=== PATIENT | female | born 1970 | race Caucasian/White ===

== ENCOUNTER 2018-07-01 20:06 | Emergency (ER) | payer SELFPAY ==
[2018-07-01 20:21] VITALS: TEMP 98; BMI 28.3
--- NOTE | 2018-07-01 20:21 | PDOC ---
Rapid Medical Evaluation Time Seen by Provider: 07/01/18 20:17 Medical Evaluation: Allergies Allergy/AdvReac Type Severity Reaction Status Date / Time amoxicillin Allergy Verified 11/10/15 18:06 ibuprofen AdvReac Verified 11/10/15 18:06 Iodinated Contrast- Oral and AdvReac Verified 11/10/15 18:07 IV Dye Penicillins AdvReac Verified 11/10/15 18:06 07/01/18 20:17 I have performed a brief in-person evaluation of this patient. The patient presents with a chief complaint of: chest discomfort radiating to L arm, denies SOB or pleuritic pain, "feels like i have a problem with my circulation", reports "problem with my vein in the past", reporst left leg swelling 2 weeks ago and was scheduled for US for r/o DVT. denies OCP use, recent surgeries/travel, last surgery cholecystectomy "years ago" Pertinent physical exam findings: tachy I have ordered the following: labs, urine, ekg, US The patient will proceed to the ED for further evaluation.
--- NOTE | 2018-07-01 21:16 | PDOC ---
History of Present Illness - General History Source: Patient Exam Limitations: No Limitations - History of Present Illness Initial Comments: 07/01/18 21:45 47 yo female no sig pmh presents to the ED for CP. Of note, pt admits to 2 weeks of immobility after having left calf injury with associated swelling and tenderness in the left leg. CP started this am, sudden onset, worse on exertion , described as pressure without radiation into her back, no diaphoresis or atypical s/s of CO. Denies F/C/N/V, abdominal pain, SOB. <Isma Cantu - Last Filed: 07/01/18 22:09> <Amanda Swanson - Last Filed: 07/02/18 01:23> - General Chief Complaint: Chest Pain Stated Complaint: PAIN Time Seen by Provider: 07/01/18 20:17 Past History - Past Medical History COPD: No - Surgical History Abdominal Surgery: Yes Cholecystectomy: Yes - Suicide/Smoking/Psychosocial Hx Smoking History: Unknown if ever smoked Have you smoked in the past 12 months: No Information on smoking cessation initiated: No Hx Alcohol Use: No Drug/Substance Use Hx: No Substance Use Type: None <Isma Cantu - Last Filed: 07/01/18 22:09> <Amanda Swanson - Last Filed: 07/02/18 01:23> - Past Medical History Allergies/Adverse Reactions: Allergies Allergy/AdvReac Type Severity Reaction Status Date / Time amoxicillin Allergy Verified 07/01/18 20:21 ibuprofen AdvReac Verified 07/01/18 20:21 Iodinated Contrast- Oral and AdvReac Verified 07/01/18 20:21 IV Dye Penicillins AdvReac Verified 07/01/18 20:21 Home Medications: Ambulatory Orders NK [No Known Home Medication] 11/10/15 *Physical Exam - Vital Signs Last Vital Signs Temp Pulse Resp BP Pulse Ox 98.0 F 117 H 16 162/100 98 07/01/18 20:19 07/01/18 20:19 07/01/18 20:19 07/01/18 20:19 07/01/18 20:19 <Isma Cantu - Last Filed: 07/01/18 22:09> - Vital Signs Last Vital Signs Temp Pulse Resp BP Pulse Ox 98.0 F 117 H 16 162/100 98 07/01/18 20:19 07/01/18 20:19 07/01/18 20:19 07/01/18 20:19 07/01/18 20:19 <Amanda Swanson - Last Filed: 07/02/18 01:23> ED Treatment Course - LABORATORY CBC & Chemistry Diagram: 07/01/18 21:00 07/01/18 21:00 <Isma Cantu - Last Filed: 07/01/18 22:09> - LABORATORY CBC & Chemistry Diagram: 07/01/18 21:00 07/01/18 21:00 - ADDITIONAL ORDERS Additional order review: Laboratory Results 07/02/18 07/01/18 07/01/18 00:20 21:05 21:00 PT with INR INR D-Dimer 220 Sodium Potassium Chloride Carbon Dioxide Anion Gap BUN Creatinine Est GFR (CKD-EPI)AfAm Est GFR (CKD-EPI)NonAf Random Glucose Calcium Magnesium Total Bilirubin AST ALT Alkaline Phosphatase Creatine Kinase Troponin I < 0.02 Total Protein Albumin TSH Serum , Qual Negative 07/01/18 07/01/18 21:00 21:00 PT with INR 12.30 INR 1.04 D-Dimer Sodium 138 Potassium 3.8 Chloride 106 Carbon Dioxide 23 Anion Gap 10 BUN 10 Creatinine 0.6 Est GFR (CKD-EPI)AfAm 127.58 Est GFR (CKD-EPI)NonAf 110.08 Random Glucose 93 Calcium 9.5 Magnesium 2.5 H Total Bilirubin 0.3 AST 15 ALT 28 Alkaline Phosphatase 80 Creatine Kinase 83 Troponin I < 0.02 Total Protein 8.3 H Albumin 4.0 TSH 1.52 Serum , Qual 07/01/18 21:00 RBC 4.82 MCV 86.7 MCHC 32.7 RDW 13.6 MPV 9.5 Neutrophils % 69.5 D Lymphocytes % 20.4 D Monocytes % 8.2 Eosinophils % 1.4 Basophils % 0.5 - Medications Given in the ED: ED Medications Discontinued Medications Generic Name Dose Route Start Last Admin Trade Name Freq PRN Reason Stop Dose Admin Acetaminophen 325 mg 07/01/18 22:34 07/01/18 22:45 Tylenol - PO 07/01/18 22:35 325 mg ONCE ONE Administration Sodium Chloride 1,000 ml 07/01/18 21:28 07/01/18 21:36 Normal Saline - IV 07/01/18 21:29 1,000 ml ONCE ONE Administration <KikiAmanda - Last Filed: 07/02/18 01:23> Medical Decision Making - Medical Decision Making 07/02/18 00:30 D-dimer neg Sono for DVT neg first trop neg Pending trop 2 S/O to night team for further care <Isma Cantu - Last Filed: 07/01/18 22:09> *DC/Admit/Observation/Transfer <Isma Cantu - Last Filed: 07/01/18 22:09> - Discharge Dispostion Decision to Admit order: No <Amanda Swanson - Last Filed: 07/02/18 01:23> Diagnosis at time of Disposition: Chest pain Qualifiers: Chest pain type: unspecified Qualified Code(s): R07.9 - Chest pain, unspecified - Discharge Dispostion Disposition: HOME Condition at time of disposition: Stable - Referrals Referrals: Tyshawn Short MD [Staff Physician] - Ricardo Jones MD [Staff Physician] - Rob Hutchins MD [Staff Physician] - - Patient Instructions Printed Discharge Instructions: DI for Chest Pain Additional Instructions: You were seen in the Emergency Department and found to have unremarkable labs, your test for blood clot in your lung was negative. Review the handout provided at discharge. Follow up with the referral given (Cardiology) and your primary care provider within a week. Return to the Emergency Department if you develop fevers/chills, trouble breathing, worsening symptoms, or any new/concerning symptoms. Print Language: [place]
[2018-07-01 21:21] LABS: BASO % 0.5 % (0-2.0); EOS % 1.4 % (0-4.5); HEMATOCRIT 41.8 % (32.4-45.2); HEMOGLOBIN 13.7 GM/dL (10.7-15.3); LYMPH % 20.4 % (8-40); MCH 28.3 pg (25.7-33.7); MCHC 32.7 g/dl (32.0-36.0); MEAN CELL VOLUME 86.7 fl (80-96); MEAN PLT VOLUME 9.5 fl (7.5-11.1); MONO % 8.2 % (3.8-10.2); NEUT % 69.5 % (42.8-82.8); PLATELET COUNT 294 K/MM3 (134-434); RBC 4.82 M/mm3 (3.60-5.2); RDW 13.6 % (11.6-15.6); WHITE BLOOD COUNT 10.9 K/mm3 (4.0-10.0)
[2018-07-01] MEDS ORDERED: SODIUM CHLORIDE 0.9% 1000 ML INFUS.BAG IV ONE (21:28)
[2018-07-01 21:37] LABS: INR 1.04 (0.83-1.09); PROTHROMBIN TIME (PATIENT) 12.3 SEC (9.7-13.0)
[2018-07-01 22:09] LABS: ALK PHOS 80 U/L (45-117); ANION GAP 10 MMOL/L (8-16); BILIRUBIN,TOTAL 0.3 mg/dL (0.2-1); BLOOD UREA NITROGEN 10 mg/dL (7-18); CALCIUM 9.5 mg/dL (8.5-10.1); CHLORIDE 106 mmol/L (98-107); CO2 23 mmol/L (21-32); CREATININE 0.6 mg/dL (0.55-1.3); GLUCOSE,RANDOM 93 mg/dL (74-106); MAGNESIUM 2.5 mg/dL (1.8-2.4); POTASSIUM 3.8 mmol/L (3.5-5.1); SGOT/AST 15 U/L (15-37); SGPT/ALT 28 U/L (13-61); SODIUM 138 mmol/L (136-145); TOT PROT 8.3 g/dl (6.4-8.2)
--- NOTE | 2018-07-01 22:21 | PDOC ---
Documentation entered by Lu Pereyra SCRIBE, acting as scribe for Amanda Swanson DO. Amanda Swanson DO: This documentation has been prepared by the Hafsa tam Xhesika, SCRIBE, under my direction and personally reviewed by me in its entirety. I confirm that the documentation accurately reflects all work, treatment, procedures, and medical decision making performed by me. Attending Attestation - Resident Resident Name: Isma Cantu - ED Attending Attestation I have performed the following: I have examined & evaluated the patient, The case was reviewed & discussed with the resident, I agree w/resident's findings & plan, Exceptions are as noted - HPI HPI: 07/01/18 21:55 The patient is a 47 year old male, with no significant PMH of who presents to the emergency department with chest pain. The patient states her chest pain is substernal and radiates to her L arm and feels like she has a problems with her circulation. The patient states she endured 2 weeks of immobility due to left leg swelling after picking up something at work and feeling a odd sensation on her leg. The patient denies SOB or pleuritic chest pain. The patient denies sweating or dizziness. Denies fever, chills, nausea, vomit, diarrhea and constipation. Denies dysuria, frequency, urgency and hematuria. Allergies: NKA - Physicial Exam PE: 07/01/18 21:55 GENERAL: (+) anxious. Awake, alert, and fully oriented, in no acute distress HEAD: No signs of trauma EYES: PERRLA, EOMI, sclera anicteric, conjunctiva clear ENT: Auricles normal inspection, hearing grossly normal, nares patent, oropharynx clear without exudates. Moist mucosa NECK: Normal ROM, supple, no lymphadenopathy, JVD, or masses LUNGS: Breath sounds equal, clear to auscultation bilaterally. No wheezes, and no crackles HEART: (+) tachycardic. Regular rate and rhythm, normal S1 and S2, no murmurs, rubs or gallops ABDOMEN: Soft, nontender, normoactive bowel sounds. No guarding, no rebound. No masses EXTREMITIES: Normal range of motion, no edema. No clubbing or cyanosis. No cords, erythema, or tenderness NEUROLOGICAL: Cranial nerves II through XII grossly intact. Normal speech, normal gait SKIN: Warm, Dry, normal turgor, no rashes or lesions noted. - Medical Decision Making 07/01/18 22:13 I, Dr. Amanda Swanson, DO, attest that this document has been prepared under my direction and personally reviewed by me in its entirety. I further attest, that it accurately reflects all work, treatment, procedures and medical decision -making performed by me. 07/01/18 22:14 a/p: 47yo female with cp today -L sided cp-nonradiating -no pleuritic component -had L leg pain x 3 weeks after work incident -pain resolved and now with L sided cp -concern for PE- will send dimer, LE duplex ultrasound -also with L sided cp- will send trop -will obtain ekg and cxr -will monitor and reassess 07/01/18 22:21 dimer neg trop neg duplex neg will repeat trop, if neg dc to home 07/02/18 01:10 repeat trop neg dimer neg 07/02/18 01:13 repeat trop neg pulse 107, pt refused IVF hydration discussed follow up with cards Heart Score/ECG Review - ECG Intrepretation Comment:: 07/01/18 22:14 sinus at 95, nl axis, nl interval, no acute st/t wave findings
[2018-07-01] MEDS ORDERED: ACETAMINOPHEN 325 MG TABLET (FP) PO ONE (22:34)
[2018-07-01] MEDS ORDERED: ACETAMINOPHEN 325 MG TABLET (FP) ONE (22:43)
--- NOTE | 2018-07-02 00:29 | PDOC ---
*Physical Exam - Vital Signs Last Vital Signs Temp Pulse Resp BP Pulse Ox 98.0 F 117 H 16 162/100 98 07/01/18 20:19 07/01/18 20:19 07/01/18 20:19 07/01/18 20:19 07/01/18 20:19 ED Treatment Course - LABORATORY CBC & Chemistry Diagram: 07/01/18 21:00 07/01/18 21:00 - ADDITIONAL ORDERS Additional order review: Laboratory Results 07/01/18 07/01/18 07/01/18 21:05 21:00 21:00 PT with INR 12.30 INR 1.04 D-Dimer 220 Sodium Potassium Chloride Carbon Dioxide Anion Gap BUN Creatinine Est GFR (CKD-EPI)AfAm Est GFR (CKD-EPI)NonAf Random Glucose Calcium Magnesium Total Bilirubin AST ALT Alkaline Phosphatase Creatine Kinase Troponin I Total Protein Albumin TSH Serum , Qual Negative 07/01/18 21:00 PT with INR INR D-Dimer Sodium 138 Potassium 3.8 Chloride 106 Carbon Dioxide 23 Anion Gap 10 BUN 10 Creatinine 0.6 Est GFR (CKD-EPI)AfAm 127.58 Est GFR (CKD-EPI)NonAf 110.08 Random Glucose 93 Calcium 9.5 Magnesium 2.5 H Total Bilirubin 0.3 AST 15 ALT 28 Alkaline Phosphatase 80 Creatine Kinase 83 Troponin I < 0.02 Total Protein 8.3 H Albumin 4.0 TSH 1.52 Serum , Qual 07/01/18 21:00 RBC 4.82 MCV 86.7 MCHC 32.7 RDW 13.6 MPV 9.5 Neutrophils % 69.5 D Lymphocytes % 20.4 D Monocytes % 8.2 Eosinophils % 1.4 Basophils % 0.5 - Medications Given in the ED: ED Medications Discontinued Medications Generic Name Dose Route Start Last Admin Trade Name Freq PRN Reason Stop Dose Admin Acetaminophen 325 mg 07/01/18 22:34 07/01/18 22:45 Tylenol - PO 07/01/18 22:35 325 mg ONCE ONE Administration Sodium Chloride 1,000 ml 07/01/18 21:28 07/01/18 21:36 Normal Saline - IV 07/01/18 21:29 1,000 ml ONCE ONE Administration *DC/Admit/Observation/Transfer Diagnosis at time of Disposition: Chest pain Qualifiers: Chest pain type: unspecified Qualified Code(s): R07.9 - Chest pain, unspecified - Discharge Dispostion Disposition: HOME Condition at time of disposition: Improved Decision to Admit order: No - Referrals Referrals: Ricardo Jones MD [Staff Physician] - Tyshawn Short MD [Staff Physician] - Rob Hutchins MD [Staff Physician] - - Patient Instructions Printed Discharge Instructions: DI for Chest Pain Additional Instructions: You were seen in the Emergency Department and found to have unremarkable labs, your test for blood clot in your lung was negative. Review the handout provided at discharge. Follow up with the referral given (Cardiology) and your primary care provider within a week. Return to the Emergency Department if you develop fevers/chills, trouble breathing, worsening symptoms, or any new/concerning symptoms. Print Language: [place] - Post Discharge Activity
[2018-07-02 01:39] VITALS: BP 123/93; PULSE 106
--- NOTE | 2018-07-03 15:38 | EKG ---
Test Reason : Blood Pressure : / mmHG Vent. Rate : 095 BPM Atrial Rate : 095 BPM P-R Int : 158 ms QRS Dur : 076 ms QT Int : 330 ms P-R-T Axes : 063 061 030 degrees QTc Int : 414 ms NORMAL SINUS RHYTHM POSSIBLE LEFT ATRIAL ENLARGEMENT BORDERLINE ECG WHEN COMPARED WITH ECG OF 10-NOV-2015 17:07, NO SIGNIFICANT CHANGE WAS FOUND Confirmed by MD Yony, Mynor ([id number]) on 07/03/2018 3:38:29 PM Referred By: Confirmed By:Mynor Bhakta MD
== END 2018-07-02 01:40 | disposition home or self-care (01) ==
LOC: JER 20:06
DX: R07.9 Chest pain, unspecified (principal); M79.602 Pain in left arm; M79.662 Pain in left lower leg
CPT/HCPCS: 36415; 71045-TC-FY; 80053; 82550; 83735; 84443; 84484; 84703; 85025; 85379; 85610; 93005; 93010; 93971-TC; 99282-25; J7030